=== PATIENT | female | born 1955 | race Caucasian/White ===

== ENCOUNTER 2021-03-09 06:37 | Day surgery (SDC) | payer MEDICARE, BC ==
[~2021-03-09 06:37] MED LIST: Lactated Ringers 1,000 ML IV SCH
[2021-03-09] MEDS ORDERED: Metoclopramide 10 MG/2 ML SDV IVPUSH PRN (07:06)
[2021-03-09] MEDS ORDERED: Ondansetron 4 MG/2 ML SDV IVPUSH PRN (07:06)
[2021-03-09] MEDS ORDERED: Morphine 2 MG/ML SYRINGE IVPUSH PRN (07:06)
[2021-03-09] MEDS ORDERED: Naloxone 0.4 MG/ML SDV IVPUSH PRN (07:06)
[2021-03-09] MEDS ORDERED: HYDROmorphone 1 MG/ML Syringe IVPUSH PRN (07:06)
[2021-03-09] MEDS ORDERED: Albuterol 0.083% 2.5 MG/3 ML Neb Soln NEB PRN (07:06)
[2021-03-09] MEDS ORDERED: fentaNYL 100 MCG/2 ML SDV IVPUSH PRN (07:06)
[2021-03-09] MEDS ORDERED: Bupivacaine 0.5% 10 ML SDV ONE (07:20)
[2021-03-09] MEDS ORDERED: Propofol 200 MG/20 ML SDV ONE (07:26)
[2021-03-09] MEDS ORDERED: Scopolamine 1.5 MG Transdermal Patch ONE (07:26)
[2021-03-09] MEDS ORDERED: Midazolam 1 MG/ML 2 ML SDV ONE (07:27)
[2021-03-09] MEDS ORDERED: ceFAZolin 2 GM in Premix Bag 1 BAG IV ONE (07:45)
[2021-03-09] MEDS ORDERED: ePHEDrine 50 MG/ML SDV ONE (08:40)
[2021-03-09] MEDS ORDERED: Phenylephrine 1% 10 MG/ML SDV ONE (09:13)
[2021-03-09] MEDS ORDERED: Ketorolac 30 MG/ML SDV ONE (09:40)
[2021-03-09] MEDS ORDERED: Ondansetron 4 MG/2 ML SDV ONE (09:40)
== END 2021-03-09 11:15 | disposition home or self-care (01) ==
LOC: MW.SDS 06:37
PROVIDERS: ATTEND Podiatrist Foot & Ankle Surgery
DX: M89.8X7 Other specified disorders of bone, ankle and foot (principal); I10 Essential (primary) hypertension; E03.9 Hypothyroidism, unspecified; E55.9 Vitamin D deficiency, unspecified; F17.210 Nicotine dependence, cigarettes, uncomplicated; N39.0 Urinary tract infection, site not specified; Z88.2 Allergy status to sulfonamides; Z79.899 Other long term (current) drug therapy; Z79.890 Hormone replacement therapy; Z79.82 Long term (current) use of aspirin; Z98.890 Other specified postprocedural states
CPT/HCPCS: 01480; 88305; 88311; J0131; J0690; J1885; J2250; J2370; J2405; J2704; J3490; J7120

== ENCOUNTER 2022-03-31 08:09 | Day surgery (SDC) | payer MEDICARE, BC ==
[~2022-03-31 08:09] MED LIST changes: +Sodium Chloride 0.9% 10 ML Syringe FLUSH PRN; +Sodium Chloride 0.9% 2.5 ML Syringe FLUSH PRN; +Sodium Chloride 0.9% 20 ML SDV IV PRN
[2022-03-31] MEDS ORDERED: Propofol 200 MG/20 ML SDV ONE (08:14)
== END 2022-03-31 10:40 | disposition home or self-care (01) ==
LOC: MW.SDS 08:09
PROVIDERS: ATTEND Surgery
DX: Z12.11 Encounter for screening for malignant neoplasm of colon (principal); K64.8 Other hemorrhoids; I10 Essential (primary) hypertension; E03.9 Hypothyroidism, unspecified; E55.9 Vitamin D deficiency, unspecified; F17.210 Nicotine dependence, cigarettes, uncomplicated; Z88.2 Allergy status to sulfonamides; Z79.899 Other long term (current) drug therapy; Z86.010 Personal history of colon polyps; Z98.890 Other specified postprocedural states
CPT/HCPCS: G0105; J2704; J7120